=== PATIENT | male | born 1955 | race Caucasian/White ===

== ENCOUNTER → 2023-10-14 13:30 | Outpatient (REF) | payer OTHER, SELFPAY | LOC: RCS 13:30 | PROVIDERS: ATTENDING PHYSICIAN Physician Assistant | DX: R06.02 Shortness of breath (principal); M79.602 Pain in left arm; I10 Essential (primary) hypertension; E78.2 Mixed hyperlipidemia | CPT/HCPCS: 93017 ==

== ENCOUNTER → 2023-10-29 13:42 | Outpatient (REF) | payer OTHER, SELFPAY | LOC: HWRCS 13:42 | PROVIDERS: ATTENDING PHYSICIAN Physician Assistant | DX: R94.39 Abnormal result of other cardiovascular function study (principal); I10 Essential (primary) hypertension; E78.2 Mixed hyperlipidemia | CPT/HCPCS: 93306 ==

== ENCOUNTER → 2024-01-20 14:05 | Outpatient (REF) | payer OTHER, SELFPAY | LOC: RCS 14:05 | PROVIDERS: ATTENDING PHYSICIAN Internal Medicine Cardiovascular Disease; FAMILY PHYSICIAN Physician Assistant | DX: R94.39 Abnormal result of other cardiovascular function study (principal) | CPT/HCPCS: 93017; 93350 ==

== ENCOUNTER 2024-09-21 06:22 | Day surgery (SDC) | payer OTHER, SELFPAY | END 2024-09-21 08:45 | disposition home or self-care (01) | LOC: GI 06:22 | PROVIDERS: ATTENDING PHYSICIAN Internal Medicine | DX: Z12.11 Encounter for screening for malignant neoplasm of colon (principal); D12.0 Benign neoplasm of cecum; D12.2 Benign neoplasm of ascending colon; D12.4 Benign neoplasm of descending colon; K64.8 Other hemorrhoids; Z86.0101 Personal history of adenomatous and serrated colon polyps | CPT/HCPCS: 45385; 88305 ==